=== PATIENT | female | born 1950 | race Caucasian/White ===

== ENCOUNTER 2025-05-03 12:29 | Outpatient (CLI) | payer MEDICARE, BC, SELFPAY | END 2025-05-03 12:30 | disposition home or self-care (01) | LOC: CT 12:32 | PROVIDERS: Visit Provider Orthopaedic Surgery Sports Medicine | DX: Z01.818 Encounter for other preprocedural examination (principal); M19.012 Primary osteoarthritis, left shoulder | CPT/HCPCS: 73200 ==

== ENCOUNTER 2025-08-01 10:33 | Day surgery (SDC) | payer MEDICARE, BC, SELFPAY ==
[2025-08-01] VITALS (23 sets, daily range): BP systolic 91–148; BP diastolic 56–81; PULSE 51–90; RESP 16–20; TEMP 36.2–37; O2SAT 91–99; BMI 28.1
--- NOTE | 2025-08-01 11:18 | W.PM.H&PU ---
History & Physical Update History & Physical Update H&P Reviewed and patient assessed: No changes noted
--- NOTE | 2025-08-01 11:21 | CRLHL7_ITS ---
For Patients: As a result of the Cures Act, medical imaging exams and procedure reports are released immediately into your electronic medical record. You may view this report before your referring provider. If you have questions, please contact your health care provider. Indication: POST OP LEFT REVERSE TSA Technique: Two views left shoulder Findings/Impression: Hardware from a left shoulder arthroplasty is in satisfactory position. Bone alignment is normal. No sign of acute fracture. Postop changes are within normal limits. Dictated by Chon Sargent MD @ 08/01/2025 3:57:52 PM (Electronically Signed)
[2025-08-01] MEDS: SODIUM CHLORIDE 0.9 % (FLUSH) 10 ML SYRINGE IVF (11:25)
[2025-08-01] MEDS: LACTATED RINGERS 1000 ML 1,000 ML 100 ML IV ×2 (11:25→13:03)
[2025-08-01] MEDS: ACETAMINOPHEN 500 MG TABLET 1000 MG PO ×3 (11:30→23:55)
[2025-08-01] MEDS: OXYCODONE (CR) 10 MG TAB.ER.12H PO (11:30)
[2025-08-01] MEDS: MIDAZOLAM HCL 1 MG/ML inj IVP (11:43)
--- NOTE | 2025-08-01 11:55 | SUR.PREOP ---
TIME?OUT:?1152 PT/RN/MDA?VERIFICATION?OF?SURGICAL?SITE,?PROCEDURE,?AND?CONSENT OBTAINED?PRIOR?TO?INVASIVE?PROCEDURE.
--- NOTE | 2025-08-01 12:19 | W.PM.NB ---
Nerve Block Nerve Block Time Seen by Provider: 11:55 Date Seen: 08/01/25 Type of block requested by surgeon for post-operative analgesia: supraclavicular Side: left Time out performed: Yes Verification of patient name: Yes Verification of date of : Yes Site marking: site marked Name of person performing procedure: Valentin Continuous monitoring Was continuous monitoring of O2 sat, B/P, prefabricated houses trimmer, recorded every 15 minutes?: Yes Procedure Checklist: sterile prep, needles and gloves Ultrasound guided. Images saved: Yes Medications given in 5ml increments after negative aspiration: Ropivicaine %: 0.5 mL: 20 Needle gauge: 22 Precedex (mcg): 25 Patient tolerated procedure well: Yes Block Charges Block Charge (with Pro Fee): Brachial Plexus Use of Ultrasound Machine for Block: Yes- US Guidance/pain block
--- NOTE | 2025-08-01 12:20 | P.ANES_ITS ---
Anesthesia Charges Start Date/Time Anesthesia Start Date: 08/01/25 Anesthesia Start Time: 12:18 Stop Date/Time Anesthesia Stop Date: 08/01/25 Anesthesia Stop Time: 14:53 Summary Extremes of Age - Over 70 or under 1: MDA Coding CPT Codes CPT Codes: ANESTH SHOULDER REPLACEMENT - 94301 ([id number]) P2 - PATIENT W/MILD SYST DISEASE, QK - CARGO AND RAMP SERVICES MANAGER 2-4 CNCRNT ANES PROC, QX - ANIMAL SHELTER CLERK SVC W/ MD MED DIRECTION Additional Codes: Summary - Extremes of Age - Over 70 or under 1: MDA ([id number])
--- NOTE | 2025-08-01 12:20 | W.ANESCHARGE ---
Anesthesia Charges Start Date/Time Anesthesia Start Date: 08/01/25 Anesthesia Start Time: 12:18 Stop Date/Time Anesthesia Stop Date: 08/01/25 Anesthesia Stop Time: 14:53 Summary Extremes of Age - Over 70 or under 1: MDA Coding CPT Codes CPT Codes: ANESTH SHOULDER REPLACEMENT - 89036 ([id number]) P2 - PATIENT W/MILD SYST DISEASE, QK - MANAGER RECRUITMENT 2-4 CNCRNT ANES PROC, QX - ELECTRONIC SCALE ASSEMBLER AND TESTER SVC W/ MD MED DIRECTION Additional Codes: Summary - Extremes of Age - Over 70 or under 1: MDA ([id number])
[2025-08-01] MEDS: TRANEXAMIC ACID 100 MG/ML INJ 1000 MG IV (12:51)
--- NOTE | 2025-08-01 14:13 | PM.ORPRC ---
Procedure Note Date of procedure: 08/01/25 Procedure: PREOPERATIVE DIAGNOSIS: 1. Left shoulder osteoarthrosis, primary, severe with poor rotator quality/integrity POSTOPERATIVE DIAGNOSIS: 1. Left shoulder osteoarthrosis, primary, severe with poor cuff tissue quality PROCEDURE: 1. Left reverse shoulder arthroplasty. SURGEON: Jose Leonard MD. SINGLE STROKE PREFORMER: Oscar Koo PA-C - Of note, a skilled sales assistant displays was critical for this case to aid in patient positioning, tissue retraction, limb manipulation/positioning, retraction for glenoid exposure, which was challenging, awareness and protection of critical structures, and closure. ANESTHESIA: General plus supraclavicular block EBL: 250 ml IMPLANTS: DJ0 surgical Altivate humeral stem size 12 small shell, short with P2 porous coating vitamin E neutral poly small socket insert RSP glenoid base plate P2 porous coating with 3 perimeter locking screws 32 neutral glenosphere with retaining screw COMPLICATIONS: None evident INDICATIONS: The patient is a pleasant 74-year-old female who has experienced severe left shoulder pain and difficulty with use. Workup included imaging which revealed severe osteoarthrosis along with concern for rotator cuff quality. Physical exam was consistent with associated pain. Given the deformity, the dysfunction, and the pain, and failure of nonoperative management, recommendation was made for surgery. DESCRIPTION OF PROCEDURE: Following a thorough discussion of risks, benefits, and alternatives, consent was obtained and the left shoulder was marked. The patient was brought to the operating room and placed supine on the operating table. Induction of anesthesia was undertaken. 2 g IV Ancef and 1 g tranexamic acid was administered within 1 hr of incision preoperatively. Appropriate time-out was performed identifying proper patient, site, and procedure. The operative extremity was prepped and draped in the appropriate sterile fashion using ChloraPrep after the patient was positioned in the [facility] [place] chair position with head in neutral alignment and all bony prominences well padded. A longitudinal incision was made for deltopectoral approach. Deltoid was retracted laterally. Cephalic vein was identified and retracted laterally as well. The vein was very small (~ 2 mm in diameter) and was ligated at its mid location as a small rent was encountered mid case. The clavipectoral fascia was identified and divided longitudinally staying lateral to the conjoined tendon / coracoid. The conjoined tendon was protected with a blunt Hohmann. The long head of the biceps tendon was identified proximally essentially at the articular margin edge and was severely scarred in to the proximal humerus. There was no biceps excursion with tugging on this. The upper 1/4 of the pectoralis major was also released from its insertion. The visualized proximal biceps tendon was excised. The rotator cuff was inspected and found to have fair to poor integrity with the subscapularis. The supraspinatus was minimally present, and a decision for a reverse shoulder arthroplasty was confirmed. A subscapularis cuff of tissue was left via tenotomy for later repair with the remaining inferior capsule released in a subperiosteal fashion with the Bovie. This was tagged for later repair. The 3 sisters were cauterized. The upper subscapularis was released from the capsule with a curved Bardales scissors towards the glenoid. The inferior subscapularis was divided from the capsular tissue on its caudal surface with particular caution for the axillary nerve. This was palpated anterior to the subscapularis both prior to and near the finish of the case. Inferior humeral head osteophytes were excised with caution taken throughout the case with regards to the axillary nerve. The humerus was dislocated, and humeral head cut completed. Then a protector plate was applied. We turned our attention to the glenoid. The humerus was retracted posteriorly. The subscap was protected anteriorly and the labrum/long head biceps origin was excised circumferentially. The capsule was released along the anterior and inferior portions of the glenoid cautiously with a Matos elevator being careful not to penetrate deep. The glenoid had appropriate exposure, and was prepared with the cannulated system with a target of approximately 5-10? of inferior tilt and neutral anteversion (patient had 16 ? of retroversion initially which was corrected back to 4? of retroversion). Utilizing the match Point 3D printed guide, the guide pin was placed. The 3D printed jig removed and after placing the guide pin, the tap was placed followed by the glenoid reaming. The real base plate was opened, and inserted, and excellent compression/purchase was achieved with the central screw. Peripheral screws were then drilled, measured, and placed. The glenosphere was then placed consistent with the preoperative plan utilizing the above noted glenosphere. After securing the glenosphere with the locking, torque limited screw, attention was turned back to the humerus. A canal finder was placed followed by various reamers by hand. The real humeral stem was then opened and inserted with excellent metaphyseal fit and stability. Trial poly was placed and the shoulder reduced. Excellent reduction and stability achieved with appropriate tension on the conjoined tendon. At this stage, trial implants were removed, and the real implants inserted and the shoulder reduced. A 3 minute Betadine soak was performed followed by a thorough irrigation with normal saline. Subscapularis was repaired with #1 PDS to the cuff of tissue on the lesser tuberosity. Excellent reapproximation of tissue achieved. Hemostasis was found to be appropriate. The deltopectoral interval was reapproximated with 0 Vicryl, subcutaneous and subcuticular closure was then performed with number 2-0 Vicryl and 4-0 Monocryl, respectively. A skilled sales assistant displays was critical for this case to aid in patient positioning, tissue retraction, limb manipulation/positioning, retraction for glenoid exposure, which was challenging, awareness and protection of critical structures, and closure. PLAN: 1. Sling most of the time for the operative upper extremity. 2. AROM of elbow, forearm, wrist, and digits as tolerated. 3. PT/OT consults for education and assistance. 4. Social consult for discharge planning. 5. 23 hr perioperative antibiotics. 6. Early ambulation, and SCDs for DVT prophylaxis. 7. Admit to the hospital for the above 8. Analgesics p.r.n.
--- NOTE | 2025-08-01 14:57 | P.ANES_ITS ---
Anesthesia Charges Start Date/Time Anesthesia Start Date: 08/01/25 Anesthesia Start Time: 12:18 Stop Date/Time Anesthesia Stop Date: 08/01/25 Anesthesia Stop Time: 14:53 Coding CPT Codes CPT Codes: ANESTH SHOULDER REPLACEMENT - 52003 ([id number]) P2 - PATIENT W/MILD SYST DISEASE, QK - ELECTRICAL CONTINUITY INSPECTOR 2-4 CNCRNT ANES PROC, QX - QUALITY ASSURANCE ENGINEER SVC W/ MD MED DIRECTION
--- NOTE | 2025-08-01 14:57 | W.ANESCHARGE ---
Anesthesia Charges Start Date/Time Anesthesia Start Date: 08/01/25 Anesthesia Start Time: 12:18 Stop Date/Time Anesthesia Stop Date: 08/01/25 Anesthesia Stop Time: 14:53 Coding CPT Codes CPT Codes: ANESTH SHOULDER REPLACEMENT - 85737 ([id number]) P2 - PATIENT W/MILD SYST DISEASE, QK - SQL ENGINEER 2-4 CNCRNT ANES PROC, QX - CONTACT ACID PLANT OPERATOR SVC W/ MD MED DIRECTION
--- NOTE | 2025-08-01 16:07 | P.IMCN_ITS ---
Date of Consult Consult date: 08/01/25 Primary Care Provider: Not a Local Provider Consult Narrative Narrative: Tabatha Ascencio is a 74 year old female without significant past medical history or chronic medication use who has experienced severe left shoulder pain and difficulty with use. Workup included imaging which revealed severe osteoarthrosis along with concern for rotator cuff quality. S/P Left reverse shoulder arthroplasty today 08/01. Patient denies history of blood clots or bleeding disorders personally and or family history. Patient denies shortness of breath, chest discomfort or lower extremity edema currently or in the past. 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 - Neoplasm of unspecified behavior of endocrine glands and other parts of nervous system (ICD-10) Visual impairment ?H54.7 - Unspecified visual loss (ICD-10) Varicella ?B01.9 - Varicella without complication (ICD-10) Primary osteoarthritis involving multiple joints ?M15.0 - Primary generalized (osteo)arthritis (ICD-10) Cataract ?H26.9 - Unspecified cataract (ICD-10) Asthma ?J45.909 - Unspecified asthma, uncomplicated (ICD-10) Surgical History S/P total abdominal hysterectomy ?Z90.710 - Acquired absence of both cervix and uterus (ICD-10) History of pituitary surgery ?Z98.890 - Other specified postprocedural states (ICD-10) History of section ?Z98.891 - History of uterine scar from previous surgery (ICD-10) History of cataract surgery ?Z98.49 - Cataract extraction status, unspecified eye (ICD-10) History of appendectomy ?Z90.49 - Acquired absence of other specified parts of digestive tract (ICD- 10) Family History (Updated 04/15/25 @ 10:03 by Tati Zeng) Sister Thyroid cancer Son Diabetes Mother High blood pressure High cholesterol Father High blood pressure High cholesterol Social History (Updated 08/01/25 @ 10:22 by Clarissa Ncie~[facility]) What is your current living situation?: I presently have a place to live Problems where you live: no known problems In the past 12 months, utilities in danger of being shut off: no In past 12 months, lack of transportation kept you from medical appts, meetings, work, or getting things needed for daily living: no In the past 12 mos, have been you worried that your food would run out before you had money to buy more?: never true In the past 12 mos, the food you bought just didn't last and you didn't have money to buy more?: never true Highest level of school completed/degree received: Bachelor's degree Smoking Status: Never smoker Do you use any of these nicotine containing products: None Second hand tobacco smoke exposure: No How often do you have a drink containing alcohol: 2-4 times a month Alcohol type: wine How many standard drinks containing alcohol do you have on a typical day: 1 or 2 How often do you have six or more drinks on one occasion: Never AUDIT-C Alcohol total score: 2 Non-prescribed substance use: denies use Caffeine: Yes How often does anyone, including family, friends and others, physically hurt you : never How often does anyone, including family, friends and others, insult or talk down to you: never How often does anyone, including family, friends and others, threaten you with harm: never How often does anyone, including family, friends and others, scream or curse at you: never service: No Meds Home Medications and Allergies Home Medications ?Medication ?Instructions ?Recorded ?Confirmed ?Type calcium 600 mg (as carbonate)-vit tab PO 04/15/2509/25 History D3 10 mcg (400 unit) chewable tablet (Calcium 600 with Vitamin D3) glucosamine sulfate 500 mg tablet 500 mg PO QDAY 04/1508/01/25 History (Glucosamine) xgevtquk-wolwfec-kyvb-lutein tablet 1 tab PO DAILY 08/01/25 History omega 3-hwl-rqo-fish oil 1,000 mg 1 cap PO QDAY 08/01/25 History (120 mg-180 mg) capsule (Fish Oil) acetaminophen 500 mg capsule 500 - 1,000 mg (1 - 2 x 5 00 mg) PO 08/01/25 Rx Q6H PRN #100 caps oxycodone 5 mg tablet 2.5 - 5 mg (0.5 - 1 x 5 mg) PO 08/01/25 Rx Q4-6H PRN pain #42 tabs sennosides 8.6 mg-docusate sodium 1 - 4 tab-cap (1 - 4 x 8.6-50 mg) 08/01/25 Rx 50 mg tablet (Senna-S) PO BID PRN constipation #60 tabs Allergies Allergy/AdvReac Type Severity Reaction Status Date / Time Iodinated Contrast Media Allergy Verified 08/01/25 10:48 Exam Narrative: Exam Narrative: GENERAL: Comfortable, no acute distress. Left shoulder sling. HEAD AND NECK: Atraumatic, normocephalic CARDIOVASCULAR: RRR. Normal S1, S2. No murmurs. RESPIRATORY: Clear to auscultation B/L. Good air entry B/L. No wheezes or rhonchi. NEUROLOGY: Alert, awake, oriented X 3. Normal speech. PSYCH: Normal mood, normal affect. Const: Vital Signs, click to edit/add: Vital Signs - 24 hr 08/01/25 10:56 08/01/25 11:42 08/01/25 11:45 Temperature 98.5 F Pulse Rate 65 64 64 Respiratory Rate 16 16 16 Blood Pressure 135/78 133/75 148/78 H Pulse Oximetry 98 97 97 Oxygen Delivery Me thod Room Air Nasal Cannula Nasal Cannula Oxygen Flow Rate 3 3 08/01/25 11:50 08/01/25 11:55 08/01/25 14:48 Temperature 98.6 F Pulse Rate 53 L 51 L 86 Respiratory Rate 16 16 16 Blood Pressure 106/62 98/57 L 143/73 H Pulse Oximetry 97 99 93 Oxygen Delivery Me thod Nasal Cannula Nasal Cannula Room Air Oxygen Flow Rate 3 3 08/01/25 14:55 08/01/25 15:00 08/01/25 15:05 Temperature Pulse Rate 85 82 76 Respiratory Rate 16 16 16 Blood Pressure 133/65 130/67 130/67 Pulse Oximetry 94 94 91 Oxygen Delivery Me thod Oxygen Flow Rate 08/01/25 15:10 08/01/25 15:15 08/01/25 15:20 Temperature 97.7 F Pulse Rate 76 75 70 Respiratory Rate 16 16 16 Blood Pressure 127/66 122/70 117/68 Pulse Oximetry 93 92 95 Oxygen Delivery Me thod Room Air Oxygen Flow Rate Assessment and Plan Assessment and plan (1) Status post reverse arthroplasty of left shoulder: Problem comment: -performed by Dr. Sullivan in on August 01. -Ortho recommends a sling most of the time for the operative upper extremity. -AROM of elbow, forearm, wrist, and digits as tolerated. -PT/OT consults. Physical exam -SCDs for DVT prophylaxis. - Phoebe encourage incentive spirometry. Status: Acute (2) Osteoarthritis of left shoulder: Problem comment: Severe Status: Acute Total Time Spent Total Time Spent: Today I spent 40 minutes seeing the patient, reviewing Expanse and EPIC notes/diagnostics, discussing the care plan with our care time that includes social work, PT/OT, pharmacy, RT, fpc and documenting my impressions and plan in the medical record.
[2025-08-01] MEDS: CEFAZOLIN 2 GM in 0.9 % SODIUM CHLORIDE Mini-bag 100 ML IVPB (18:50)
--- NOTE | 2025-08-01 19:03 | PC.NURSE ---
End of shift: pt alert and oriented x4, VSS, on RA tolerating a reg diet. Dressing C/D/I. Active ice to op site. ambulating sba to br. up to chair and voiding well. Patient met six hr goals.
[2025-08-01] MEDS: SENNOSIDES 1 TAB TABLET 2 TAB PO (20:56)
[2025-08-02 02:52] VITALS: BP 145/70; PULSE 74; RESP 16; TEMP 36.8; O2SAT 96
[2025-08-02] MEDS: CEFAZOLIN 2 GM in 0.9 % SODIUM CHLORIDE Mini-bag 100 ML IVPB ×2 (02:58→11:47)
--- NOTE | 2025-08-02 06:15 | PC.NURSE ---
[id number]: Patient pleasant and cooperative. SBA. Sling to L. shoulder with elevation and active ice. CMS intact. Denies pain. Denies N/V. Eating and voiding.
[2025-08-02] MEDS: ACETAMINOPHEN 500 MG TABLET 1000 MG PO ×2 (06:27→13:17)
[2025-08-02 07:00] VITALS: BP 139/73; PULSE 86; RESP 16; TEMP 36.8; O2SAT 96
--- NOTE | 2025-08-02 08:25 | PM.ORPN ---
Subjective Subjective Date Seen: 08/02/25 Principal diagnosis: POD1 left reverse total shoulder arthroplasty Interval history: Patient reports doing well. No acute events over night. Still noting difficulty moving her wrist and left upper extremity in general. Notes left wrist drop, poor elbow flexion and extension, but slowly she is starting to be able to extend her fingers. She has no pain, though continues receive scheduled acetaminophen. Continues ice for therapies. She is right-hand dominant. DVT prophylaxis: SCDs, walking. Denies fevers, chills, aches, N/V, CP, SOB/FARNSWORTH, or lightheadedness. She is here with her . Ortho Exam Narrative Exam Narrative: -Patient appears comfortable in recliner; no apparent acute distress -Alert and oriented times 3 -Operative shoulder mildly swollen; soft, supple tissues; no obvious erythema. No significant ecchymosis. Warmth appropriate -Surgical dressing clean, dry, intact; no obvious drainage, no erythematous streaking peripheral to the bandage -Bilateral calves soft and supple; no significant swelling, edema, tenderness, erythema, discoloration, warmth, or palpable cords -patient is unable to extend her wrist, but does show to have some strength through the extensor carpi ulnaris. She is able to extend her fingers fully with a slightly flexed wrist,, which is not achievable with a passively extended wrist. 0/5 strength with elbow flexion, and extension. Weakness with shoulder abduction, as patient appears to more shrug then shoulder abduct. Unable to demonstrate a thumbs up or okay sign. -sensation reduced largely within the radial nerve distribution at her wrist, hand, digits. Intact ulnar nerve distribution. Intact median nerve distribution. Mild neurapraxia/numbness involving the deltoid region. -2+ radial pulse. Brisk cap refill of her digits. Const Vital Signs, click to edit/add: Vital Signs - 24 hr 08/01/25 10:56 08/01/25 11:42 08/01/25 11:45 Temperature 98.5 F Pulse Rate 65 64 64 Pulse Rate [Left Pulse Oximeter] Respiratory Rate 16 16 16 Blood Pressure 135/78 133/75 148/78 H Blood Pressure [Right Arm] Pulse Oximetry 98 97 97 Oxygen Delivery Method Room Air Nasal Cannula Nasal Cannula Oxygen Flow Rate 3 3 08/01/25 11:50 08/01/25 11:55 08/01/25 14:48 Temperature 98.6 F Pulse Rate 53 L 51 L 86 Pulse Rate [Left Pulse Oximeter] Respiratory Rate 16 16 16 Blood Pressure 106/62 98/57 L 143/73 H Blood Pressure [Right Arm] Pulse Oximetry 97 99 93 Oxygen Delivery Method Nasal Cannula Nasal Cannula Room Air Oxygen Flow Rate 3 3 08/01/25 14:55 08/01/25 15:00 08/01/25 15:05 Temperature Pulse Rate 85 82 76 Pulse Rate [Left Pulse Oximeter] Respiratory Rate 16 16 16 Blood Pressure 133/65 130/67 130/67 Blood Pressure [Right Arm] Pulse Oximetry 94 94 91 Oxygen Delivery Method Oxygen Flow Rate 08/01/25 15:10 08/01/25 15:15 08/01/25 15:20 Temperature 97.7 F Pulse Rate 76 75 70 Pulse Rate [Left Pulse Oximeter] Respiratory Rate 16 16 16 Blood Pressure 127/66 122/70 117/68 Blood Pressure [Right Arm] Pulse Oximetry 93 92 95 Oxygen Delivery Method Room Air Oxygen Flow Rate 08/01/25 15:30 08/01/25 15:30 08/01/25 15:45 Temperature 97.6 F 97.6 F 97.6 F Pulse Rate 70 76 Pulse Rate [Left Pulse Oximeter] 70 Respiratory Rate 16 16 16 Blood Pressure 116/81 91/74 Blood Pressure [Right Arm] 116/81 Pulse Oximetry 94 94 92 Oxygen Delivery Method Room Air Room Air Room Air Oxygen Flow Rate 08/01/25 16:00 08/01/25 16:15 08/01/25 16:30 Temperature 97.7 F 98.0 F 98.4 F Pulse Rate 72 65 64 Pulse Rate [Left Pulse Oximeter] Respiratory Rate 16 16 16 Blood Pressure 110/61 110/61 104/62 Blood Pressure [Right Arm] Pulse Oximetry 92 95 92 Oxygen Delivery Method Room Air Room Air Room Air Oxygen Flow Rate 08/01/25 17:00 08/01/25 18:00 08/01/25 19:15 Temperature 98.4 F 98.4 F 97.2 F L Pulse Rate 64 65 90 Pulse Rate [Left Pulse Oximeter] Respiratory Rate 16 16 16 Blood Pressure 122/64 95/71 93/56 L Blood Pressure [Right Arm] Pulse Oximetry 98 98 93 Oxygen Delivery Method Room Air Room Air Room Air Oxygen Flow Rate 08/01/25 20:15 08/01/25 21:55 08/01/25 23:00 Temperature 98.1 F 98.1 F Pulse Rate 71 76 Pulse Rate [Left Pulse Oximeter] Respiratory Rate 20 18 18 Blood Pressure 110/60 110/81 Blood Pressure [Right Arm] Pulse Oximetry 93 94 94 Oxygen Delivery Method Room Air Room Air Room Air Oxygen Flow Rate 08/02/25 02:52 Temperature 98.3 F Pulse Rate 74 Pulse Rate [Left Pulse Oximeter] Respiratory Rate 16 Blood Pressure 145/70 H Blood Pressure [Right Arm] Pulse Oximetry 96 Oxygen Delivery Method Room Air Oxygen Flow Rate Assessment and Plan Assessment and plan (1) Status post reverse arthroplasty of left shoulder: Problem details: -performed by Dr. Leonard 08/01/25 -Ortho recommends a sling most of the time for the operative upper extremity. -AROM of elbow, forearm, wrist, and digits as tolerated. -PT/OT consults -SCDs for DVT prophylaxis. -encouraged incentive spirometry. Status: Acute (2) Osteoarthritis of left shoulder: Problem details: Severe Status: Acute Plan - Complete 23 hour perioperative antibiotics. - PT/OT consult for education and assistance. - Social work consult for discharge planning - Prescribed analgesics as needed - DVT prophylaxis: Walking, and SCDs - Anticipation is for discharge to home today with 08/02/2025. I would like to see how she does with therapy this morning and to see if she starts to regain some her motor and sensory function. I believe this is all related to the supraclavicular nerve block, which is still active especially as patient has no pain through the shoulder. She is encouraged to continue to use her hand/digits/wrist. Continue trying to perform elbow flexion and extension. I believe this will take time as the block continues to wear off. As the block wears off, she will likely start to experience some pain as well.
[2025-08-02] MEDS: SENNOSIDES 1 TAB TABLET 2 TAB PO (11:46)
--- NOTE | 2025-08-02 14:42 | PC.NURSE ---
Discharge: VSS, on RA tolerating a reg diet. Patients left arm in sling and using active ice to op site. Patients dressing is c/d/i, CMS intact, able to move fingers and rates pain 0/10. denies N/V/SOB. patient's iv removed tip intact. belongings sheet signed and discharge instructions given and signed.
== END 2025-08-02 13:55 | disposition home or self-care (01) ==
LOC: OR 10:37 → MEDSURG 10:38
PROVIDERS: Visit Provider Orthopaedic Surgery Sports Medicine
PROC: 0RRJ0JZ Replacement of Right Shoulder Joint with Synthetic Substitute, Open Approach (ICD-10-PCS; CPT 23472; principal; 2025-08-01 12:30)
DX: M19.012 Primary osteoarthritis, left shoulder (principal); G89.18 Other acute postprocedural pain; J45.909 Unspecified asthma, uncomplicated
CPT/HCPCS: 23472; 01638; 64415; 73030; 76942; 97110; 97165; 97535; 99100; A9270; C1713; C1776; J0690; J1100; J2250; J2371; J2405; J2704; J2795; J3010; J7120